=== PATIENT | female | born 1970 | race Caucasian/White ===

== ENCOUNTER 2018-12-17 13:12 | Emergency (ER) | payer MEDICAID, SELFPAY ==
[2018-12-17 13:13] VITALS: BP 122/61; PULSE 78; RESP 16; TEMP 36.7; O2SAT 99; BMI 22.6
--- NOTE | 2018-12-17 13:37 | ED.DCSUM_ITS ---
History of Present Illness Chief Complaint: Cellulitis Informant: Patient Occurred: Yesterday Onset: Yesterday Context: Gradual Onset Timing: Continuous Quality of Pain: Aching - sore Location: right ankle/lower leg Current Severity: Moderate Maximum Severity: Moderate Worsened by: walking, palpation Relieved by: leaving it alone Associated Symptoms: Negative for: Parasthesia, Weakness, Loss of Funtion Narrative: Spontaneous onset of painful redness at the lateral aspect of the right ankle. Noticed last night. Has been outside recently where there are flying insects. Now redness and pain seems to be spreading up her leg a little. Swelling at the red area but no edema of the leg. No history of DVTs. No systemic symptoms or fevers. She has lupus and is on prednisone. No diabetes. No recent splinters, foreign bodies, or other obvious nidus for infection. She had no injury. - Past Medical History (1) Fibromyalgia Status: Chronic (2) Lupus Status: Chronic (3) Hypothyroid Status: Chronic (4) Hypersomnia Status: Chronic Past Medical History - Allergies and Home Meds Allergies/Adverse Reactions: Allergies No Known Allergies Allergy (Verified 12/17/18 13:13) Primary Care Physician: [facility] Doctor,Out of [Primary Care Provider] - Lives: With Family Smoking Status: Never smoker Review of Systems General: Denies: Chills, Fever Gastrointestinal: Denies: Nausea, Vomiting Musculoskeletal: Reports: Arthralgias - chronic, Extremity Pain Skin: Reports: Rash. Denies: Wounds Physical Exam Vital Signs/Narrative: Vital Signs Temp Pulse Resp BP Pulse Ox 12/17/18 13:13 98.1 F 78 16 122/61 H 99 Inital Vital Signs reviewed: Yes - Extremity Exam Right Ankle: - - tender blanching erythema lateral malleolus. some sparse small patches of tender erythema more proximally, no lymphangitis. no cords. no extremity edema.. Negative for: Deformity, Limited ROM General: Well nourished, Well developed Head: Normocephalic, Atraumatic Skin: - - warm tender erythema right lateral malleolus. see above. Neurological: Alert, Oriented x3, Cranial nerves II-XII grossly intact, Normal Strength, Normal Sensation, Normal Gait Psychological: Normal affect Diagnostic/Tx/Re-eval - Medical Decision Making We will treat as cellulitis with a dose of IM Ancef and oral Keflex. No abscess to suggest MRSA. Possibly started as an insect sting, regardless she is on prednisone and it could be infected. She has a physician to follow-up with, we discussed reasons to return and she is comfortable with that plan. Offered crutches and she declines. ED Disposition - Plan for ED Patient: Disposition: Home or Assisted Living Diagnosis: Cellulitis of right ankle Instructions: ED Infec Skin Cellulitis Prescriptions: Cephalexin [Keflex] 500 mg PO 4X/DAY #40 capsule Referrals: [facility] Doctor,Out of [Primary Care Provider] - 3-5 Days if not improving
[2018-12-17] MEDS: Ibuprofen 600 MG Tablet PO (13:55)
[2018-12-17 14:27] VITALS: BP 218/74; PULSE 62; RESP 15; O2SAT 98
== END 2018-12-17 14:27 | disposition home or self-care (01) ==
LOC: ED 13:54
PROVIDERS: Emergency Provider Emergency Medicine
DX: L03.115 Cellulitis of right lower limb (principal); M79.7 Fibromyalgia; E03.9 Hypothyroidism, unspecified; Z79.899 Other long term (current) drug therapy
CPT/HCPCS: 96372; 99283